=== PATIENT | female | born 1975 | race Two or more races ===

== ENCOUNTER 2016-10-18 12:53 | Emergency (ER) | payer MEDICARE ==
[~2016-10-18] VITALS: Ht 165.1 cm; Wt 100.0 kg
[~2016-10-18 12:53] MED LIST: CALC-72 PO; OXYC-302 PO; PREN1TAB56 PO
[2016-10-18 14:03] LABS: DAU SCREEN DISCLAIMER
[2016-10-18 14:54] LABS: ASPARTATE AMINO TRANSFERASE 14 U/L (15-37); BLOOD UREA NITROGEN 9 mg/dL (7-18)
[2016-10-18 15:06] LABS: ACETAMINOPHEN < 2 mcg/mL (10-30)
[2016-10-18] MEDS ORDERED: OLAN10TA3 PO (15:43)
[2016-10-18] MEDS ORDERED: ZIPRASIDONE 20MG CAPSULE PO ONE (16:30)
[2016-10-18] MEDS ORDERED: ZIPRASIDONE 20MG CAPSULE ONE (16:34)
[2016-10-18 16:45] VITALS: BP 126/81
== END 2016-10-18 19:00 | disposition home or self-care (01) ==
LOC: ED 14:45 → UNDOADMOB 15:42 → EDIP 15:42 → ED 19:00
DX: F31.9 Bipolar disorder, unspecified (principal)
CPT/HCPCS: 36415; 80053; 80307; 80329; 81003; 84443; 84703; 85025; 99284; G0480

== ENCOUNTER 2016-11-18 19:19 | Emergency (ER) | payer MEDICARE ==
[~2016-11-18] VITALS: Ht 165.1 cm; Wt 108.0 kg
[~2016-11-18 19:19] MED LIST changes: +OLAN10TA3 PO
[2016-11-18 19:25] VITALS: BP 150/91
== END 2016-11-18 20:02 | disposition home or self-care (01) ==
LOC: ED 19:40
DX: K08.89 Other specified disorders of teeth and supporting structures (principal); H92.01 Otalgia, right ear; F31.9 Bipolar disorder, unspecified
CPT/HCPCS: 99283

== ENCOUNTER 2020-12-28 12:49 | Outpatient (CLI) | payer MEDICARE ==
[~2020-12-28 12:49] MED LIST changes: +CALC-534 PO; -CALC-72 PO; -OXYC-302 PO; +OXYC1TAB12 PO
== END 2020-12-28 23:59 | disposition home or self-care (01) ==
LOC: CFH 12:49
PROVIDERS: ATTEND Physician Assistant
DX: Z12.31 Encounter for screening mammogram for malignant neoplasm of breast (principal)
CPT/HCPCS: 77063; 77067